=== PATIENT | male | born 1950 | race Caucasian/White ===

== ENCOUNTER 2022-11-25 13:51 | Inpatient (IN) | payer MEDICARE ==
[~2022-11-25] VITALS: Ht 175.3 cm; Wt 72.6 kg
[2022-11-25] MEDS ORDERED: ONDANSETRON HCL/PF 4 MG/2 ML VIAL ONE (14:24)
[2022-11-25] MEDS ORDERED: ONDANSETRON HCL/PF 4 MG/2 ML VIAL IVP ONE (14:30)
[2022-11-25] MEDS ORDERED: IV NS 0.9% 500 ML BAG IV ONE (14:30)
[2022-11-25] MEDS ORDERED: LIDO1ADH62 TD (14:57)
[2022-11-25] MEDS ORDERED: DULO60CA45 PO (14:57)
[2022-11-25] MEDS ORDERED: HYDR-4303 PO (14:57)
[2022-11-25] MEDS ORDERED: GABA300C PO (14:57)
[2022-11-25 15:01] LABS: BASOPHILS # (AUTO) 0.1 K/uL (0.0-0.2); BASOPHILS % (AUTO) 0.4 % (0.0-2.0); EOSINOPHILS # (AUTO) 0.1 K/uL (0.0-0.7); EOSINOPHILS % (AUTO) 0.6 % (0.0-6.0); HEMATOCRIT 57 % (39-51); HEMOGLOBIN 18.1 g/dL (13.5-17.5); LYMPHOCYTES # (AUTO) 2.6 K/uL (0.8-4.8); LYMPHOCYTES % (AUTO) 18.5 % (20.0-44.0); MEAN CORPUSCULAR HEMOGLOBIN 33 PG (26.0-33.0); MEAN CORPUSCULAR HGB CONC 32 g/dl (31.0-36.0); MEAN CORPUSCULAR VOLUME 105 fL (80-96); MONOCYTES # (AUTO) 1.3 K/uL (0.1-1.30); MONOCYTES % (AUTO) 8.9 % (2.0-12.0); NEUTROPHILS # (AUTO) 10.2 K/uL (1.8-8.9); NEUTROPHILS % (AUTO) 71.6 % (43.0-81.0); PLATELET COUNT (AUTO) 197 K/uL (150-450); RED BLOOD CELL COUNT(AUTO) 5.45 MIL/uL (4.5-6.0); RED CELL DISTRIBUTION WIDTH 14.5 % (11.5-15.0); WHITE BLOOD COUNT (AUTO) 14.2 K/uL (4.3-11.0)
[2022-11-25 15:11] LABS: CALCIUM, SERUM 8.7 mg/dL (8.5-10.1); CARBON DIOXIDE 22 mmol/L (21-32); CHLORIDE 107 mmol/L (98-107); CREATININE 1.4 mg/dL (0.6-1.3); GLUCOSE 169 mg/dL (74-106); POTASSIUM 3.2 mmol/L (3.5-5.1); SODIUM SERUM 141 mmol/L (136-145); UREA NITROGEN, BLOOD 15 mg/dL (7-18)
[2022-11-25 15:21] LABS: ALANINE AMINOTRANSFERASE 20 U/L (12-78); ALBUMIN 3.1 g/dL (3.4-5.0); ALKALINE PHOSPHATASE 76 U/L (46-116); ASPARTATE AMINOTRANSFERASE 19 U/L (15-37); BILIRUBIN,DIRECT 0.2 mg/dL (0.0-0.2); TOTAL PROTEIN, SERUM 6.5 g/dL (6.4-8.2)
[2022-11-25] MEDS: Magnesium 1GM/D5W 100ML PREMIX 100 ML IV SCH ×2 (16:00→17:00)
[2022-11-25] MEDS ORDERED: PIPERACILLIN /TAZOBACTAM 3.375 G in IV D5W 50 ML IV ONE (16:00)
[2022-11-25] MEDS ORDERED: CEFTRIAXONE 1 G in IV D5W 50 ML IV ONE (16:00)
[2022-11-25] MEDS ORDERED: AZITHROMYCIN 500 MG in IV D5W 250 ML IV ONE (16:00)
[2022-11-25 16:02] LABS: LACTIC ACID 3.8 mmol/L (0.4-2.0)
[2022-11-25 16:15] LABS: BAND % (MANUAL) 2 % (0.0-5.0); LYMPHOCYTES % (MANUAL) 19 % (16-48); MONOCYTES % (MANUAL) 6 % (0-11.0); NEUTROPHILS % (MANUAL) 73 (42-76)
[2022-11-25 16:16] LABS: PLATELET ESTIMATE ADEQUATE
[2022-11-25 16:23] LABS: MAGNESIUM 2.5 mg/dL (1.8-2.4)
[2022-11-25] MEDS ORDERED: INSULIN REGULAR, HUMAN 100 UNIT/ML 3 ML VIAL SQ PRN (16:30)
[2022-11-25] MEDS ORDERED: ACETAMINOPHEN 325 MG TABLET PO PRN (16:30)
[2022-11-25] MEDS ORDERED: DEXTROSE 50%-WATER 50 ML DISP.SYRIN IV PRN (16:30)
[2022-11-25] MEDS ORDERED: MAGNESIUM HYDROXIDE 30 ML UDC PO PRN (16:30)
[2022-11-25] MEDS ORDERED: MAG HYDROX/AL HYDROX/SIMETH 30 ML UDC PO PRN (16:30)
[2022-11-25] MEDS ORDERED: ONDANSETRON HCL/PF 4 MG/2 ML VIAL IVP PRN (16:30)
[2022-11-25] MEDS ORDERED: Z GUARD REMEDY 4 OZ OINT TP PRN (16:30)
[2022-11-25] MEDS ORDERED: IV NS 0.9% 1,000 ML BAG IV ONE (16:30)
[2022-11-25] MEDS ORDERED: IV NS 0.9% 1,000 ML IV PRN (16:30)
[2022-11-25] MEDS ORDERED: DIAZEPAM 5 MG TABLET PO PRN (16:30)
[2022-11-25] MEDS: POTASSIUM CL. PREMIX PERIPHER. 50 ML IV SCH ×2 (16:45→17:00)
[2022-11-25 16:57] LABS: THYROID STIMULATING HORMONE 1.443 uIU/mL (0.358-3.74)
[2022-11-25] MEDS: GABAPENTIN 300 MG CAPSULE PO SCH (17:00)
[2022-11-25] MEDS: BLOOD SUGAR DIAGNOSTIC 1 EACH STRIP IN SCH ×2 (17:30→22:00)
[2022-11-25] MEDS ORDERED: GABAPENTIN 300 MG CAPSULE ONE (17:45)
[2022-11-25] MEDS: HYDROCODONE/APAP 5/325MG TABLET PO PRN (18:31)
[2022-11-25 19:14] LABS: APPEARANCE,URINE CLEAR (CLEAR); BILIRUBIN,URINE NEGATIVE (NEGATIVE); BLOOD, URINE TRACE Ery/uL (NEGATIVE); COLOR,URINE YELLOW (YELLOW); KETONES,URINE TRACE mg/dL (NEGATIVE); LEUKOCYTE ESTERASE ,URINE NEGATIVE (NEGATIVE); NITRITE, URINE NEGATIVE (NEGATIVE); PROTEIN,URINE 1+ mg/dl (NEGATIVE); UGLUCOSE 3+ mg/dL (NEGATIVE); UROBILINOGEN,URINE 0.2 EU/dL (0.2)
[2022-11-25 19:30] LABS: ADD URINE CULTURE NO; BACTERIA,URINE None seen /HPF (None Seen); MUCUS,URINE Few /LPF (None Seen); RBC,URINE 0-2 /HPF (0-2); SQUAMOUS EPITHELIAL CELL,UR None Seen /HPF (None Seen); WBC,URINE NONE SEEN /HPF (0-3)
[2022-11-25 20:00] VITALS: BP 138/68; TEMP 98.2; O2SAT 99
[2022-11-25] MEDS: PIPERACILLIN /TAZOBACTAM 3.375 G in IV D5W 50 ML IV SCH (22:30)
[2022-11-26] VITALS: BP 106/69; TEMP 98.2; O2SAT 99
[2022-11-26 04:00] VITALS: BP 109/85; TEMP 98.2; O2SAT 99
[2022-11-26] MEDS: PIPERACILLIN /TAZOBACTAM 3.375 G in IV D5W 50 ML IV SCH ×2 (05:11→11:17)
[2022-11-26 05:47] LABS: BASOPHILS % (AUTO) 0.3 % (0.0-2.0); EOSINOPHILS # (AUTO) 0.1 K/uL (0.0-0.7); HEMATOCRIT 45 % (39-51); HEMOGLOBIN 14.8 g/dL (13.5-17.5); LYMPHOCYTES # (AUTO) 2.6 K/uL (0.8-4.8); MEAN CORPUSCULAR HEMOGLOBIN 33 PG (26.0-33.0); MEAN CORPUSCULAR HGB CONC 33 g/dl (31.0-36.0); MEAN CORPUSCULAR VOLUME 102 fL (80-96); MONOCYTES # (AUTO) 1.1 K/uL (0.1-1.30); NEUTROPHILS # (AUTO) 6.1 K/uL (1.8-8.9); NEUTROPHILS % (AUTO) 61.7 % (43.0-81.0); PLATELET COUNT (AUTO) 230 K/uL (150-450); RED BLOOD CELL COUNT(AUTO) 4.42 MIL/uL (4.5-6.0); RED CELL DISTRIBUTION WIDTH 13.8 % (11.5-15.0); WHITE BLOOD COUNT (AUTO) 9.9 K/uL (4.3-11.0)
[2022-11-26 06:02] LABS: CALCIUM, SERUM 8.3 mg/dL (8.5-10.1); CREATININE 1.2 mg/dL (0.6-1.3); MAGNESIUM 2.3 mg/dL (1.8-2.4); PHOSPHORUS 3.5 mg/dL (2.5-4.9); POTASSIUM 3.7 mmol/L (3.5-5.1)
[2022-11-26 06:18] LABS: THYROID STIMULATING HORMONE 0.257 uIU/mL (0.358-3.74)
[2022-11-26] MEDS ORDERED: PANTOPRAZOLE 40 MG TABLET.DR PO SCH (07:30)
[2022-11-26 08:00] VITALS: BP 117/79; TEMP 98.4; O2SAT 99
[2022-11-26] MEDS ORDERED: LIDOCAINE 5% (PATCH) 1 EA PATCH TP SCH (09:00)
[2022-11-26] MEDS ORDERED: DULOXETINE HCL 20 MG CAPSULE.DR PO SCH (09:00)
[2022-11-26] MEDS: GABAPENTIN 300 MG CAPSULE PO SCH ×2 (09:18→12:20)
[2022-11-26] MEDS: BLOOD SUGAR DIAGNOSTIC 1 EACH STRIP IN SCH ×2 (09:18→11:15)
[2022-11-26 12:00] VITALS: BP 125/79; TEMP 98.6; O2SAT 99
[2022-11-26] MEDS ORDERED: AMOX-430 PO (12:29)
[2022-11-26] MEDS: HYDROCODONE/APAP 5/325MG TABLET PO PRN (12:29)
[2022-11-26] MEDS ORDERED: DIAZ5TAB PO (12:39)
== END 2022-11-26 13:02 | disposition home or self-care (01) | DRG 640 ==
LOC: ER 14:38 → TELE1 17:33
PROVIDERS: ADMIT Nurse Practitioner Acute Care; ATTEND Nurse Practitioner Acute Care
DX: E86.0 Dehydration (principal); J15.9 Unspecified bacterial pneumonia; N17.0 Acute kidney failure with tubular necrosis; I48.20 Chronic atrial fibrillation, unspecified; E87.20 Acidosis, unspecified; I25.10 Atherosclerotic heart disease of native coronary artery without angina pectoris; E11.42 Type 2 diabetes mellitus with diabetic polyneuropathy; E78.5 Hyperlipidemia, unspecified; G89.4 Chronic pain syndrome; I10 Essential (primary) hypertension; Z20.822 Contact with and (suspected) exposure to COVID-19; D72.829 Elevated white blood cell count, unspecified; L40.50 Arthropathic psoriasis, unspecified; Z95.818 Presence of other cardiac implants and grafts; Z85.51 Personal history of malignant neoplasm of bladder; N40.0 Benign prostatic hyperplasia without lower urinary tract symptoms; S81.811A Laceration without foreign body, right lower leg, initial encounter; X58.XXXA Exposure to other specified factors, initial encounter; Y93.9 Activity, unspecified; Y92.009 Unspecified place in unspecified non-institutional (private) residence as the place of occurrence of the external cause
CPT/HCPCS: 36415; 71045-TC; 76770-TC; 80048-TC; 80061-TC; 80076-TC; 81001; 82962-TC; 83605-TC; 83735-TC; 83880; 84100-TC; 84439-TC; 84443-TC; 84484-TC; 85025-TC; 87040-TC; 93307-TC; 97112-TC; 97116-TC; 97530-TC; A4223; A6253; A6403; C9803; G0378; J1815; J2405; J2543; J3475; J3480; J7030; J7040; J7050; J7060